=== PATIENT | male | born 1965 | race Caucasian/White ===

== ENCOUNTER 2019-01-15 20:05 | Emergency (ER) | payer SELFPAY ==
[~2019-01-15] VITALS: Ht 165.1 cm; Wt 90.7 kg
[2019-01-15 20:05] VITALS: BP 108/69
--- NOTE | 2019-01-15 20:05 | NUR ---
PATIENT BIB [facility] TO ER CHAIR Sergio
[2019-01-15 20:10] VITALS: BP 119/82
[2019-01-15] MEDS ORDERED: IBUPROFEN 600 MG TAB PO ONE (20:10)
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
== END 2019-01-15 20:20 ==
LOC: MED 20:05
DX: S20.219A Contusion of unspecified front wall of thorax, initial encounter (principal); F10.129 Alcohol abuse with intoxication, unspecified; V43.52XA Car driver injured in collision with other type car in traffic accident, initial encounter; Y93.89 Activity, other specified; Y92.488 Other paved roadways as the place of occurrence of the external cause; Y99.8 Other external cause status
CPT/HCPCS: 99283